=== PATIENT | female | born 1970 | race Caucasian/White ===

== ENCOUNTER 2022-11-05 15:59 | Outpatient (CLI) | payer MEDICAID, SELFPAY ==
--- NOTE | 2022-11-05 16:17 | XR_ITS ---
WS: [id number] Exam: XR lumbar spine f/e only [id number] Date/Time of Exam: 11/05/2022 4:18 PM Reason For Exam: VERTEBROGENIC LOW BACK PAIN There is anterior operative fusion of the spine at the L5-S1 level with an intervening disc spacer. N o fracture noted. No flexion or extension instability identified. The remaining disc spaces are prese rved. Mild spondylosis. Pronounced osteopenia. XR/XR lumbar spine f/e only [id number] IMPRESSION: 1. No flexion or extension instability. 2. Stable-appearing interbody anterior fusion at L5-S1. 3. Marked osteopenia
== END 2022-11-05 16:00 | disposition home or self-care (01) ==
PROVIDERS: PCP Nurse Practitioner Family; Visit Provider Nurse Practitioner
DX: M54.51 Vertebrogenic low back pain (principal); M43.27 Fusion of spine, lumbosacral region; M85.88 Other specified disorders of bone density and structure, other site
CPT/HCPCS: 72120

== ENCOUNTER 2022-12-05 11:30 | Outpatient (CLI) | payer MEDICAID, SELFPAY | END 2022-12-05 11:31 | disposition home or self-care (01) | LOC: SLEEP 12-06 07:32 | PROVIDERS: PCP Nurse Practitioner Family; Visit Provider Anesthesiology Pain Medicine | DX: G47.10 Hypersomnia, unspecified (principal); R06.83 Snoring | CPT/HCPCS: G0399 ==